=== PATIENT | male | born 1980 | race Caucasian/White ===

== ENCOUNTER 2020-09-06 16:58 | Emergency (ER) | payer BC ==
[~2020-09-06] VITALS: Ht 193 cm; Wt 119.2 kg
--- NOTE | 2020-09-06 17:40 | NUR ---
assist rn::PT BACK FROM CT
--- NOTE | 2020-09-06 18:23 | NUR ---
Pt provided warm blanket. denies headache, N/V. Chart up for ERP CT scan results back. Friend at bedside.
--- NOTE | 2020-09-06 18:57 | NUR ---
REPORT FROM FRANKLIN Garg RN ASSUMING CARE OF PT AT THIS TIME
[2020-09-06 19:28] VITALS: BP 137/97
== END 2020-09-06 19:29 | disposition home or self-care (01) ==
LOC: ED 19:01
DX: S06.0X0A Concussion without loss of consciousness, initial encounter (principal); R41.82 Altered mental status, unspecified; Z87.891 Personal history of nicotine dependence; W18.30XA Fall on same level, unspecified, initial encounter; Y93.89 Activity, other specified; Y92.828 Other wilderness area as the place of occurrence of the external cause; Y99.8 Other external cause status
CPT/HCPCS: 70450; 99284